=== PATIENT | male | born 1975 | race Two or more races ===

== ENCOUNTER 2017-04-20 05:23 | Emergency (ER) | payer SELFPAY ==
[~2017-04-20] VITALS: Ht 177.8 cm; Wt 86.2 kg
[~2017-04-20 05:23] MED LIST: UNOBMED
[2017-04-20 05:35] VITALS: BP 118/74
--- NOTE | 2017-04-20 05:59 | Emergency Room Report ---
History of Present Illness General Chief Complaint: Altered Level of Consciousness Source: EMS (INGRID CANTRELL M.D.) Present Illness HPI 41-year-old male presents to ED for evaluation. Patient was found sleeping in a [employer]. employees called 911. Patient was initially very lethargic and was given narcan with some improvement. Patient denies any drug use but was found with a needle. Patient showing no signs of distress. unable to provide any additional history at this time. No other aggravating relieving factors. Denies any other associated symptom (INGRID CANTRELL M.D.) Allergies: Coded Allergies: UNABLE TO ASSESS (Unverified , 04/20/17) Patient History Past Medical History: none Past Surgical History: none Pertinent Family History: none Social History: Denies: smoking, alcohol use, drug use Immunizations: UTD Reviewed Nursing Documentation: PMH: Agreed, PSxH: Agreed (INGRID CANTRELL M.D.) Nursing Documentation-PMH Past Medical History Deferred: Pt Cognitively Impaired (INGRID CANTRELL M.D.) Review of Systems All Other Systems: limited (INGRID CANTRELL M.D.) Physical Exam Vital Signs Date Time Temp Pulse Resp B/P (MAP) Pulse Ox O2 Delivery O2 Flow Rate FiO2 04/20/17 05:14 97.5 89 16 136/92 99 Room Air Sp02 EP Interpretation: reviewed, normal General Appearance: lethargic Head: normocephalic Eyes: bilateral eye normal inspection, bilateral eye PERRL ENT: normal ENT inspection Neck: normal inspection Respiratory: chest non-tender, lungs clear, normal breath sounds, speaking full sentences Cardiovascular #1: regular rate, rhythm, no edema Gastrointestinal: normal inspection Rectal: deferred Genitourinary: no CVA tenderness Musculoskeletal: normal inspection Neurologic: other - lethargic Psychiatric: other - lethargic Skin: normal inspection Lymphatic: normal inspection (INGRID CANTRELL M.D.) Medical Decision Making Diagnostic Impression: Primary Impression: Altered level of consciousness Additional Impression: Substance abuse ER Course Please see evaluation by Dr. Cantrell. Patient examined. Responds to name but with garbled speech. Swelling of bilat hands, L > R. Xrays ordered. Consider CT of head if not clearing. Patient alert and ambulatory. No medical emergency at this time. Discharged. Laboratory Tests Test 04/20/17 05:40 White Blood Count 8.1 K/UL (4.8-10.8) Red Blood Count 4.85 M/UL (4.70-6.10) Hemoglobin 15.5 G/DL (14.2-18.0) Hematocrit 45.4 % (42.0-52.0) Mean Corpuscular Volume 94 FL (80-99) Mean Corpuscular Hemoglobin 31.9 PG (27.0-31.0) H Mean Corpuscular Hemoglobin Concent 34.1 G/DL (32.0-36.0) Red Cell Distribution Width 11.6 % (11.6-14.8) Platelet Count 263 K/UL (150-450) Mean Platelet Volume 7.0 FL (6.5-10.1) Neutrophils (%) (Auto) 63.8 % (45.0-75.0) Lymphocytes (%) (Auto) 21.8 % (20.0-45.0) Monocytes (%) (Auto) 10.8 % (1.0-10.0) H Eosinophils (%) (Auto) 2.4 % (0.0-3.0) Basophils (%) (Auto) 1.2 % (0.0-2.0) Sodium Level 143 mEQ/L (135-145) Potassium Level 3.9 mEQ/L (3.4-4.9) Chloride Level 105 mEQ/L (98-107) Carbon Dioxide Level 26 mEQ/L (20-30) Anion Gap 12 (5-15) Blood Urea Nitrogen 19 mg/dL (7-23) Creatinine 1.0 mg/dL (0.7-1.2) Estimate Glomerular Filtration Rate > 60 mL/min (>60) Glucose Level 103 mg/dL (74-106) Calcium Level 8.9 mg/dL (8.6-10.2) Total Bilirubin 0.4 mg/dL (0.0-1.2) Aspartate Amino Transferase (AST) 18 U/L (5-40) Alanine Aminotransferase (ALT) 14 U/L (3-41) Alkaline Phosphatase 104 U/L (40-129) Total Protein 7.5 g/dL (6.6-8.7) Albumin 3.9 g/dL (3.5-5.2) Globulin 3.6 g/dL Albumin/Globulin Ratio 1.0 (1.0-2.7) Salicylates Level < 1 mg/dL (10-30) L Acetaminophen Level < 10 ug/mL (10-30) L Serum Alcohol < 10 mg/dL (John Live M.D.) Last Vital Signs Date Time Temp Pulse Resp B/P (MAP) Pulse Ox O2 Delivery O2 Flow Rate FiO2 04/20/17 05:35 97.5 84 16 118/74 99 Room Air (INGRID CANTRELL M.D.) Last Vital Signs Date Time Temp Pulse Resp B/P (MAP) Pulse Ox O2 Delivery O2 Flow Rate FiO2 04/20/17 12:18 67 16 125/77 100 Room Air 04/20/17 12:18 98.0 Status: improved (John Live M.D.) Disposition: HOME, SELF-CARE Condition: Improved INGRID CANTRELL M.D. Apr 20, 2017 05:59 John Live M.D. Apr 20, 2017 07:10
[2017-04-20 06:04] LABS: BASOPHILS % (AUTO) 1.2 % (0.0-2.0); EOSINOPHILS % (AUTO) 2.4 % (0.0-3.0); LYMPHOCYTES % (AUTO) 21.8 % (20.0-45.0); MEAN CORPUSCULAR HEMOGLOBIN 31.9 PG (27.0-31.0); MEAN CORPUSCULAR HGB CONC 34.1 G/DL (32.0-36.0); MEAN CORPUSCULAR VOLUME 94 FL (80-99); MONOCYTES % (AUTO) 10.8 % (1.0-10.0); NEUTROPHILS % (AUTO) 63.8 % (45.0-75.0); PLATELET COUNT 263 K/UL (150-450); RED BLOOD COUNT 4.85 M/UL (4.70-6.10); RED CELL DISTRIBUTION WIDTH 11.6 % (11.6-14.8); WHITE BLOOD COUNT 8.1 K/UL (4.8-10.8)
[2017-04-20 06:10] LABS: ACETAMINOPHEN < 10 ug/mL (10-30); ALANINE AMINOTRANSFERASE 14 U/L (3-41); ALCOHOL < 10 mg/dL; ANION GAP 12 (5-15); ASPARTATE AMINO TRANSFERASE 18 U/L (5-40); CALCIUM 8.9 mg/dL (8.6-10.2); CARBON DIOXIDE 26 mEQ/L (20-30); CHLORIDE 105 mEQ/L (98-107); GLOMERULAR FILTRATION RATE > 60 mL/min (>60); HEMOLYSIS 4; POTASSIUM 3.9 mEQ/L (3.4-4.9); SODIUM 143 mEQ/L (135-145); TOTAL PROTEIN 7.5 g/dL (6.6-8.7)
[2017-04-20 06:37] VITALS: BP 122/76
[2017-04-20 08:02] VITALS: BP 116/65
[2017-04-20 10:05] VITALS: BP 123/73
--- NOTE | 2017-04-20 10:17 | Diagnostic Imaging Report ---
Indication: Head trauma and pain Findings: 3 views of the right hand were obtained. Normal bony mineralization and alignment are demonstrated. No acute fractures, erosions, or periosteal reaction are seen. Tissue swelling is noted in the dorsum of the hand.. Impression: No acute injury
--- NOTE | 2017-04-20 10:19 | Diagnostic Imaging Report ---
Indication: pain Findings: 3 views of the left hand were obtained. Normal bony mineralization and alignment are demonstrated. No acute fractures, erosions, or periosteal reaction are seen. Tissue swelling noted. Impression: Negative examination of the left hand.
[2017-04-20 12:18] VITALS: BP 125/77
== END 2017-04-20 12:18 | disposition home or self-care (01) ==
LOC: EDBD 05:23 → EMR 07:20
DX: R41.82 Altered mental status, unspecified (principal); F19.10 Other psychoactive substance abuse, uncomplicated; M79.89 Other specified soft tissue disorders; R53.83 Other fatigue
CPT/HCPCS: 36415; 73130; 80053; 85025; 96360; 99284; G0480; 80329